=== PATIENT | female | born 1990 | race Caucasian/White ===

== ENCOUNTER 2016-09-18 07:23 | Emergency (ER) | payer MEDICAID ==
[~2016-09-18] VITALS: Ht 162.6 cm; Wt 60.0 kg
[2016-09-18 10:01] VITALS: BP 133/77
== END 2016-09-18 10:02 | disposition home or self-care (01) ==
LOC: ER 07:23
DX: F41.0 Panic disorder [episodic paroxysmal anxiety] (principal); R03.0 Elevated blood-pressure reading, without diagnosis of hypertension
CPT/HCPCS: 81025; 93005; 99284